=== PATIENT | male | born 1970 | race Caucasian/White ===

== ENCOUNTER 2017-03-15 10:07 | Outpatient (CLI) | payer OTHER ==
[~2017-03-15 10:07] MED LIST: NORCO1 TA1 PO
--- NOTE | 2017-03-15 13:43 | DIAGNOSTIC IMAGING REPORT ---
PROCEDURE: CT SINUS/FACIAL BONES W/O CONT CLINICAL INDICATION: SINUSITIS TECHNIQUE: Noncontrast axial images with coronal reformations. COMPARISON: None. FINDINGS: Mild right maxillary, left ethmoid and minor left maxillary sinus mucosal thickening. There are no air-fluid levels. Patent ostiomeatal units. Visualized mastoids are clear. Mild right septal deviation. IMPRESSION: 1. Mild sinus disease and right nasal septal deviation. All CT scans at this facility use dose modulation, iterative reconstruction, and/or weight-based dosing when appropriate to reduce radiation dose to as low as reasonably achievable.
== END 2017-03-15 23:00 | disposition home or self-care (01) ==
LOC: CT SRH 10:07
DX: J32.9 Chronic sinusitis, unspecified (principal); J34.2 Deviated nasal septum